=== PATIENT | female | born 1950 | race Caucasian/White ===

== ENCOUNTER → 2016-12-19 | Outpatient (CLI) | payer OTHER ==
--- NOTE | 2016-12-20 14:00 | MM ---
Reason for exam: screening (asymptomatic). Last mammogram was performed 1 year and 1 month ago. History: Patient is postmenopausal and had first child at age 36. Family history of breast cancer in maternal aunt. Physical Findings: A clinical breast exam by your physician is recommended on an annual basis and results should be correlated with mammographic findings. MG 3D Screening Mammo W/Cad Bilateral CC and MLO view(s) were taken. Prior study comparison: December 01, 2015, bilateral MG 3d screening mammo w/cad. The breast tissue is extremely dense which could obscure a lesion on mammography. No significant changes when compared with prior studies. ASSESSMENT: Benign, BI-RAD 2 RECOMMENDATION: Routine screening mammogram of both breasts in 1 year.
== END ==
LOC: RADMAMWWP 07:32
PROVIDERS: ATTEND Family Medicine
DX: Z12.31 Encounter for screening mammogram for malignant neoplasm of breast (principal)
CPT/HCPCS: 77063; G0202

== ENCOUNTER → 2017-12-29 | Outpatient (CLI) | payer MEDICARE ==
[2017-12-29 10:09] LABS: Basophils % (A) 1 %; Eosinophils # (A) 0.2 k/uL (0-0.7); Eosinophils % (A) 5 %; HCT 39.1 % (34.0-46.0); HGB 12.7 gm/dL (11.4-16.0); Lymphocytes # (A) 1.6 k/uL (1.0-4.8); Lymphocytes % (A) 37 %; MCH 29.3 pg (25.0-35.0); MCHC 32.5 g/dL (31.0-37.0); MCV 90.1 fL (80.0-100.0); Mean Platelet Volume 6.5; Monocytes # (A) 0.3 k/uL (0-1.0); Monocytes % (A) 6 %; Neutrophils # (A) 2.1 k/uL (1.3-7.7); Neutrophils % (A) 49 %; Platelet Count 323 k/uL (150-450); RBC 4.34 m/uL (3.80-5.40); RDW 13.1 % (11.5-15.5); WBC 4.3 k/uL (3.8-10.6)
[2017-12-29 10:32] LABS: Anion Gap 14 mmol/L; Blood Urea Nitrogen 17 mg/dL (7-17); Carbon Dioxide 29 mmol/L (22-30); Chloride 102 mmol/L (98-107); Potassium 3.8 mmol/L (3.5-5.1); Sodium 145 mmol/L (137-145)
== END | disposition home or self-care (01) ==
LOC: LABPAT 09:02
PROVIDERS: ATTEND Obstetrics & Gynecology
DX: Z01.812 Encounter for preprocedural laboratory examination (principal); N81.4 Uterovaginal prolapse, unspecified; Z01.818 Encounter for other preprocedural examination
CPT/HCPCS: 36415; 80051; 82565; 84520; 85025; 86850; 86900; 86901; 87086; 93005

== ENCOUNTER 2018-01-08 05:34 | Inpatient (IN) | payer MEDICARE, OTHER ==
[2017-12-25 12:38] VITALS: BMI 21.8
[~2018-01-08 05:34] MED LIST: DEXAMETHASONE SOD PHOSPHATE 10 MG/ML 1 ML VIAL IV ONE; HYDROmorphone 0.5 MG/0.5 ML SYRINGE IVP PRN; MORPHINE SULFATE 4 MG/ML SYRINGE IV PRN; ONDANSETRON 4 MG/2 ML VIAL IVP ONE; ONDANSETRON 4 MG/2 ML VIAL IVP PRN; ceFAZolin IN SWFI 2 GM/20 ML SYRINGE IVP ONE
[2018-01-08] MEDS: LACTATED RINGERS 1,000 ML IV SCH ×2 (06:26→23:58)
[2018-01-08] MEDS ORDERED: MIDAZOLAM 2 MG/2 ML VIAL ONE (08:10)
[2018-01-08] MEDS ORDERED: PHENYLEPHRINE-0.9% NACL SYG 1 MG/10 ML SYRINGE ONE (08:10)
[2018-01-08] MEDS ORDERED: PROPOFOL 10 MG/ML 20 ML VIAL IV ONE (08:10)
[2018-01-08] MEDS ORDERED: fentaNYL (PF) 50 MCG/ML 2 ML AMP ONE (08:10)
[2018-01-08] MEDS ORDERED: VASOPRESSIN 20 UNIT/ML 1 ML VIAL SQ ONE (08:35)
[2018-01-08] MEDS ORDERED: BACITRACIN 500 UNIT/GM OINT 28.4 GM TUBE TOPICAL ONE (08:53)
[2018-01-08] MEDS ORDERED: diphenhydrAMINE 50 MG/ML 1 ML VIAL IVP PRN (09:12)
[2018-01-08] MEDS ORDERED: IBUPROFEN 600 MG TAB PO PRN (09:12)
[2018-01-08] MEDS ORDERED: ZOLPIDEM 5 MG TAB PO PRN (09:12)
[2018-01-08] MEDS ORDERED: Acetaminophen-Codeine 300-30mg TAB PO PRN (09:12)
--- NOTE | 2018-01-08 09:12 | P.OP ---
Date of Procedure: 01/08/18 Preoperative Diagnosis: Symptomatic uterine prolapse, cystocele Postoperative Diagnosis: Same, no ovarian anomalies Procedure(s) Performed: Vaginal hysterectomy, anterior colporrhaphy Anesthesia: spinal Surgeon: Laura Arndt Computer Programmer Chief #1: jA Saleem Estimated Blood Loss (ml): 25 IV fluids (ml): 700 Urine output (ml): 200 Pathology: other (Cervix and uterus) Condition: stable Disposition: PACU Operative Findings: Normal-appearing left ovary Description of Procedure: Patient is brought to the operating suite where a spinal with Duramorph is given. She is then put in the dorsal lithotomy position, the cervix, vagina, perineal body and lower abdomen are all prepped and draped in usual sterile fashion. Antibiotics are given. The appropriate timeout is performed to assure proper patient and procedural identification. Weighted speculum was placed into the vagina, bladder is drained for approximately 200 mL of clear yellow urine. The anterior lip of the cervix is grasped with a double-tooth tenaculum. The cervix is injected circumferentially with dilute Pitressin solution. A kotzebue blade scalpel is used to incise the mucosa circumferentially, with a V like positioning at 6:00. A sponge rolled finger is used to sweep the mucosa from the underlying plane. Peritoneum is entered at 6:00 and suture tied with 2-0 Vicryl. The large billed speculum is then placed. At all times the mucosa is swept well from the underlying plane, to avoid any bladder and/or ureteral injury. Rose clamps are used, and the right uterosacral ligament is identified, clamped, cut, and held with a 0 Vicryl suture. The same is carried out on the contralateral side. Uterine vasculature is identified, clamped cut and suture ligated. 2 additional pedicles are taken superior to the vessels. Peritoneum is entered at 6:00. Rose clamps are used across the final pedicles , the cervix and uterus are removed and sent to pathology. The pedicles are tied with 0 Vicryl suture, flashed, and retied for excellent hemostasis. The right ovary has been surgically removed, the left ovary appears atrophic and normal, and therefore left in situ per the patient's wishes. 2-0 Vicryl suture at 6:00 is now brought around to close the peritoneum in a pursestring fashion. The previously held uterosacral cardinal ligaments are brought across to incorporate the opposite ligament as well as vaginal mucosa. 2 additional wexmwr-qd-jrwaq sutures of 0 Vicryl are used and the vaginal cough is closed. Allis clamps are used on the anterior most portion, and the cystocele repair is started. The mucosa is injected in the midline with the same dilute Pitressin solution. Metzenbaum scissors are used to undermine the mucosa and it is opened in the midline to approximately 1.5 cm inferior to the urethra. Whitley catheter is now placed in the bladder is drained. The edges of the mucosa are held with Allis clamps and a fanlike fashion. The mucosa is dissected from the underlying fascial plane. 2-0 Vicryl sutures used to bring the fascial edges together in the midline in an interrupted fashion. The cystocele was completely reduced. Metzenbaum scissors are used to trim the redundant mucosa. 2-0 Vicryl is used in a running locking stitch to close the anterior repair. Vagina is completely visualized and noted to be clean and dry. It is packed with a 1 inch iodophor gauze. Whitley catheter is noted to be draining clear urine. All sponge needle and enhancement counts are correct at the end of the procedure. Patient is brought back to the recovery room in excellent condition with stable vital signs including blood pressure 112/58, pulse 66, 99% O2 saturation.
[2018-01-08] MEDS ORDERED: KETOROLAC 30 MG/ML 1 ML VIAL IVP PRN (12:25)
[2018-01-08] MEDS: METOCLOPRAMIDE 5 MG/ML 2 ML VIAL IVP PRN ×2 (12:42→19:31)
[2018-01-08] MEDS ORDERED: NALOXONE 0.4 MG/ML 1 ML VIAL IV PRN (13:52)
[2018-01-08] MEDS ORDERED: MORPHINE SULFATE 2 MG/ML SYRINGE IVP PRN (13:52)
[2018-01-08] MEDS ORDERED: NALBUPHINE 10 MG/ML AMPUL IV PRN (13:52)
--- NOTE | 2018-01-09 07:07 | P.PN ---
Progress Note - Text Progress Note Date: 01/09/18 Postoperative day 1 status post vaginal hysterectomy, under spinal anesthesia, and intrathecal morphine given for postoperative analgesia, patient doing well, there is no anesthesia related complications, Patient had no headache, vital signs stable , Assessment and plan= postop day 1 , doing well there is no anesthesia related complication.
--- NOTE | 2018-01-09 08:12 | P.DS ---
Providers Date of admission: 01/08/18 Expected date of discharge: 01/09/18 Attending physician: Laura Arndt Primary care physician: [facility] Course: This is a 67-year-old female who presented with an increasingly symptomatic bulge of the perineal body. Preoperative workup included consultation with Dr. Smith, sling procedure deemed unnecessary. Patient consented for vaginal hysterectomy and anterior colporrhaphy. Please see my dictated history and physical for details. Patient underwent vaginal hysterectomy and anterior colporrhaphy under my care yesterday. She did well intraoperatively. The right ovary had been surgically removed, left ovary appeared normal and was therefore left in situ per her wishes. The vagina was packed with iodoform gauze and Whitley catheter placed. Please see my dictated operative note for details. Today the patient is doing very well. She has voided, and has a post void residual of 0. Vaginal packing has been removed, there was no vaginal bleeding. She had nausea and emesis last night, however that has resolved this morning and she is tolerating regular diet. Extremities are negative for edema. Abdomen is soft and nontender, active bowel sounds, no CVA tenderness. Patient is being discharged home later today. She is in very good condition for discharge home. I have reminded her no intercourse, tampons or douching. She will use [id number] ibuprofen products, 200 mg pills, 3 every 6 hours as needed. I've asked her to call me with any fevers shakes or chills, any vaginal bleeding, any pain not alleviated by ibuprofen, or indeed with any concerns. She will resume all of her home medications. Pathology report pending at time of this dictation. Patient Condition at Discharge: Good Plan - Discharge Summary Discharge Rx Participant: No New Discharge Prescriptions: No Action Multivitamins, Thera [Multivitamin (formulary)] 1 each PO DAILY Discharge Medication List Multivitamins, Thera [Multivitamin (formulary)] 1 each PO DAILY 12/25/17 [ History] Follow up Appointment(s)/Referral(s): Laura Arndt MD [STAFF PHYSICIAN] - 2 Weeks Discharge Disposition: HOME SELF-CARE
[2018-01-09] MEDS: LACTATED RINGERS 1,000 ML IV SCH (09:11)
[2018-01-09 13:09] VITALS: BP 101/52; PULSE 62; TEMP 98.9
[2018-01-09 14:22] VITALS: RESP 18
== END 2018-01-09 14:46 | disposition home or self-care (01) | DRG 743 ==
LOC: OR 05:34 → 6PED 09:07 → OR 09:07 → 6PED 09:12 → OR 01-09 08:34 → 6PED 01-09 08:34 → UNDOADMIN 01-09 08:35 → 6PED 01-09 08:35
PROVIDERS: ADMIT Obstetrics & Gynecology; ATTEND Obstetrics & Gynecology
PROC: 0JQC3ZZ Repair Pelvic Region Subcutaneous Tissue and Fascia, Percutaneous Approach (ICD-10-PCS; principal; 2018-01-08 07:45)
PROC: 0UT97ZZ Resection of Uterus, Via Natural or Artificial Opening (ICD-10-PCS; principal; 2018-01-08 07:45)
DX: N81.4 Uterovaginal prolapse, unspecified (principal); Z88.0 Allergy status to penicillin; Z78.0 Asymptomatic menopausal state; Z90.721 Acquired absence of ovaries, unilateral; Z98.51 Tubal ligation status
CPT/HCPCS: 86850; 86900; 86901; 88307

== ENCOUNTER → 2018-02-15 | Outpatient (CLI) | payer MEDICARE ==
--- NOTE | 2018-02-19 08:07 | MM ---
Reason for exam: screening (asymptomatic). Last mammogram was performed 1 year and 2 months ago. History: Patient is postmenopausal and had first child at age 36. Family history of breast cancer in maternal aunt. Physical Findings: A clinical breast exam by your physician is recommended on an annual basis and results should be correlated with mammographic findings. MG 3D Screening Mammo W/Cad Bilateral CC and MLO view(s) were taken. Prior study comparison: December 19, 2016, bilateral MG 3d screening mammo w/cad. December 01, 2015, bilateral MG 3d screening mammo w/cad. October 05, 2014, bilateral MG diagnostic mammo w CAD [facility]. The breast tissue is heterogeneously dense. This may lower the sensitivity of mammography. No significant changes when compared with prior studies. ASSESSMENT: Negative, BI-RAD 1 RECOMMENDATION: Routine screening mammogram of both breasts in 1 year.
== END | disposition home or self-care (01) ==
LOC: RADMAMWWP 10:59
PROVIDERS: ATTEND Family Medicine
DX: Z12.31 Encounter for screening mammogram for malignant neoplasm of breast (principal)
CPT/HCPCS: 77063; 77067

== ENCOUNTER → 2018-05-22 | Outpatient (CLI) | payer MEDICARE ==
--- NOTE | 2018-05-22 13:44 | BD ---
EXAMINATION TYPE: Axial Bone Density DATE OF EXAM: 05/22/2018 COMPARISON: NONE CLINICAL HISTORY: Height: 68 IN Weight: 148 LBS FRAX RISK QUESTIONS: Secondary Osteoporosis: RISK FACTORS HISTORY OF: Active: YES Postmenopausal woman: AGE 60 Take estrogen and/or progesterone medications: NOT NOW How long: TOOK CONTROL AGE 21-26 MEDICATIONS: Additional Medications: MULTI VITAMIN EXAM MEASUREMENTS: Bone mineral densitometry was performed using the [email or web address] System. Bone mineral density as measured about the Lumbar spine is: ----- L1-L4(G/cm2): 1.209 T Score Values are as follows: ----- L2: -0.5 ----- L3: 1.2 ----- L4: 0.9 ----- L1-L4: 0.2 Bone mineral density BASELINE Bone mineral density about the R hip (g/cm2): 0.967 Bone mineral density about the L hip (g/cm2): 0.992 T Score values are as follows: -----R Neck: -0.5 -----L Neck: -0.3 -----R Total: -0.4 -----L Total: 0.3 Bone mineral density BASELINE IMPRESSION: Normal (Values between +1 and -1 indicate normal bone mass). Consider repeating this study in 5 year s or sooner if there is some new clinical indication. NOTE: T-SCORE=SD OF THE YOUNG ADULT MEAN.
== END | disposition home or self-care (01) ==
LOC: RADBDWWP 10:01
PROVIDERS: ATTEND Family Medicine
DX: Z13.820 Encounter for screening for osteoporosis (principal)
CPT/HCPCS: 77080

== ENCOUNTER 2019-06-10 07:51 | Day surgery (SDC) | payer MEDICARE ==
[2019-06-06 11:35] VITALS: BMI 21.1
[~2019-06-10 07:51] MED LIST changes: -DEXAMETHASONE SOD PHOSPHATE 10 MG/ML 1 ML VIAL IV ONE; -HYDROmorphone 0.5 MG/0.5 ML SYRINGE IVP PRN; +LACTATED RINGERS 1,000 ML IV SCH; +LIDOCAINE 1% 20 ML VIAL (10MG/ML) FOR IV START INTRADERMA PRN; -MORPHINE SULFATE 4 MG/ML SYRINGE IV PRN; -ONDANSETRON 4 MG/2 ML VIAL IVP ONE; -ONDANSETRON 4 MG/2 ML VIAL IVP PRN; -ceFAZolin IN SWFI 2 GM/20 ML SYRINGE IVP ONE
[2019-06-10 08:29] VITALS: TEMP 98
[2019-06-10] MEDS ORDERED: PROPOFOL 10 MG/ML 20 ML VIAL IV ONE (09:01)
[2019-06-10 09:36] VITALS: BP 106/63; PULSE 58; RESP 16
--- NOTE | 2019-06-10 09:44 | P.PCN ---
Date of Procedure: 06/10/19 Description of Procedure: BRIEF HISTORY: Patient is a 68-year-old pleasant female scheduled for an elective colonoscopy as a part of personal history of colon polyps. Last colonoscopy in 2013 at which time patient will require was removed. No change in bowel habits, blood per rectum or abdominal pain. PROCEDURE PERFORMED: Colonoscopy with polypectomy. PREOPERATIVE DIAGNOSIS: personal history of colon polyps, last colonoscopy in 2013. ESTIMATED BLOOD LOSS: Minimal. IV sedation per Anesthesia. PROCEDURE: After informed consent was obtained, the patient, was brought into the endoscopy unit. IV sedation was administered by Anesthesia under continuous monitoring. Digital rectal examination was normal. Initially the Olympus CF-190 flexible video colonoscope was then inserted in the rectum, gradually advanced into the cecum without any difficulty. Careful examination was performed as the scope was gradually being withdrawn. Ileocecal valve and the appendiceal orifice were visualized and appeared normal. Prep was excellent. Mucosa of the cecum, ascending colon, transverse colon, descending colon, sigmoid colon, and rectum appeared normal. diminutive 2 mm transverse colon polyp removed with cold forcep polypectomy. Diminutive 2 mm sigmoid polyp removed with cold forcep p olypectomy. Mild sigmoid diverticulosis.Retroflexion was performed in the rectum and no lesions were seen. The patient tolerated the procedure well. IMPRESSION: 2 diminutive polyps removed from the transverse colon and sigmoid with cold forcep polypectomy. Mild sigmoid diverticulosis. RECOMMENDATIONS: Findings of this examination were discussed with the patient and her . Okay to resume diet. Okay to resume medications. Anticipate repeat colonoscopy in 5 years for personal history of colon polyps.
== END 2019-06-10 10:27 | disposition home or self-care (01) ==
LOC: ORWHC2ENDO 07:51
PROVIDERS: ATTEND Internal Medicine
DX: Z12.11 Encounter for screening for malignant neoplasm of colon (principal); D12.3 Benign neoplasm of transverse colon; K63.5 Polyp of colon; K57.30 Diverticulosis of large intestine without perforation or abscess without bleeding; Z86.010 Personal history of colon polyps; Z90.710 Acquired absence of both cervix and uterus; Z98.51 Tubal ligation status; Z90.721 Acquired absence of ovaries, unilateral; Z80.0 Family history of malignant neoplasm of digestive organs; Z88.0 Allergy status to penicillin
CPT/HCPCS: 88305; 45380; J2704

== ENCOUNTER → 2019-06-11 | Outpatient (CLI) | payer MEDICARE ==
--- NOTE | 2019-06-13 09:33 | MM ---
Reason for exam: screening (asymptomatic). Last mammogram was performed 1 year and 4 months ago. History: Patient is postmenopausal and had first child at age 36. Family history of breast cancer in maternal aunt. Physical Findings: A clinical breast exam by your physician is recommended on an annual basis and results should be correlated with mammographic findings. MG 3D Screening Mammo W/Cad Bilateral CC and MLO view(s) were taken. Prior study comparison: February 15, 2018, bilateral MG 3d screening mammo w/cad. December 19, 2016, bilateral MG 3d screening mammo w/cad. The breast tissue is heterogeneously dense. This may lower the sensitivity of mammography. There are benign appearing regional round calcifications bilaterally. There is no discrete abnormality. ASSESSMENT: Benign, BI-RAD 2 RECOMMENDATION: Routine screening mammogram of both breasts in 1 year.
== END | disposition home or self-care (01) ==
LOC: RADMAMWWP 14:55
PROVIDERS: ATTEND Family Medicine
DX: Z12.31 Encounter for screening mammogram for malignant neoplasm of breast (principal)
CPT/HCPCS: 77063; 77067

== ENCOUNTER → 2020-08-17 | Outpatient (CLI) | payer MEDICARE ==
--- NOTE | 2020-08-19 13:59 | MM ---
Reason for exam: screening (asymptomatic). Last mammogram was performed 1 year and 2 months ago. History: Patient is postmenopausal and had first child at age 36. Family history of breast cancer in maternal aunt. Physical Findings: A clinical breast exam by your physician is recommended on an annual basis and results should be correlated with mammographic findings. MG 3D Screening Mammo W/Cad Bilateral CC and MLO view(s) were taken. Prior study comparison: June 11, 2019, bilateral MG 3d screening mammo w/cad. February 15, 2018, bilateral MG 3d screening mammo w/cad. The breast tissue is heterogeneously dense. This may lower the sensitivity of mammography. Benign dermal calcification at the left axilla. No significant changes when compared with prior studies. ASSESSMENT: Negative, BI-RAD 1 RECOMMENDATION: Routine screening mammogram of both breasts in 1 year.
== END | disposition home or self-care (01) ==
LOC: RADMAMWWP 16:04
PROVIDERS: ATTEND Family Medicine
DX: Z12.31 Encounter for screening mammogram for malignant neoplasm of breast (principal)
CPT/HCPCS: 77063; 77067

== ENCOUNTER → 2021-09-21 | Outpatient (CLI) | payer MEDICARE ==
--- NOTE | 2021-09-23 11:38 | MM ---
Reason for exam: screening (asymptomatic). Last mammogram was performed 1 year and 1 month ago. History: Patient is postmenopausal and had first child at age 36. Family history of breast cancer in maternal aunt. Physical Findings: A clinical breast exam by your physician is recommended on an annual basis and results should be correlated with mammographic findings. MG 3D Screening Mammo W/Cad Bilateral CC and MLO view(s) were taken. Prior study comparison: August 17, 2020, bilateral MG 3d screening mammo w/cad. June 11, 2019, bilateral MG 3d screening mammo w/cad. The breast tissue is heterogeneously dense. This may lower the sensitivity of mammography. No significant changes when compared with prior studies. ASSESSMENT: Negative, BI-RAD 1 RECOMMENDATION: Routine screening mammogram of both breasts in 1 year.
== END | disposition home or self-care (01) ==
LOC: RADMAMWWP 13:36
PROVIDERS: ATTEND Family Medicine
DX: Z12.31 Encounter for screening mammogram for malignant neoplasm of breast (principal); Z78.0 Asymptomatic menopausal state; Z80.3 Family history of malignant neoplasm of breast
CPT/HCPCS: 77063; 77067

== ENCOUNTER → 2023-03-30 | Outpatient (CLI) | payer MEDICARE ==
--- NOTE | 2023-03-30 13:17 | MM ---
Reason for Exam: Follow-up at short interval from prior study. Last screening mammogram was performed 6 month(s) ago. Patient History: Menarche at age 14. First Full-Term at age 36. Late child-bearing (after 30). Right ovary removed at age 32. Hysterectomy at age 67. Postmenopausal. Patient has history of breast feeding. Patient used Hormonal Contraceptives for 3 years. Maternal aunt had breast cancer. Risk Values: Daria 5 year model risk: 2.4%. NCI Lifetime model risk: 6.9%. Prior Study Comparison: 09/21/2021 Bilateral Screening Mammogram, [facility]. 09/25/2022 Bilateral MG 3D screening mammo w/cad, [facility]. 09/28/2022 Left MG 3D work up w/cad , [facility]. Tissue Density: Left: The breast tissue is heterogeneously dense. This may lower the sensitivity of mammography. Findings: Analyzed By CAD. Asymmetry in the left breast/fibroglandular tissue appears stable. No new suspicious masses, calcifications or distortions. Overall Assessment: Benign, BI-RAD 2 Management: Screening Mammogram of both breasts in 1 year. Results were given to the patient verbally at the time of exam. Patient should continue monthly self-breast exams. A clinical breast exam by your physician is recommended on an annual basis. This exam should not preclude additional follow-up of suspicious palpable abnormalities. Note on Daria scores and lifetime risk: 1. A Daria score greater than 3% is considered moderate risk. If this is the case, consider specialist referral to assess eligibility for a risk reducing agent. 2. If overall lifetime risk for the development of breast cancer is 20% or higher, the patient may qualify for future screening with alternating mammogram and breast MRI. Electronically signed and approved by: Anmol Falcon DO
== END | disposition home or self-care (01) ==
LOC: RADMAMWWP 12:52
PROVIDERS: ATTEND Family Medicine
DX: R92.8 Other abnormal and inconclusive findings on diagnostic imaging of breast (principal); Z78.0 Asymptomatic menopausal state; Z80.3 Family history of malignant neoplasm of breast
CPT/HCPCS: 77065; G0279; 77061

== ENCOUNTER → 2023-10-15 | Outpatient (CLI) | payer MEDICARE ==
--- NOTE | 2023-10-16 14:57 | MM ---
Reason for Exam: Screening (asymptomatic). Last mammogram was performed 1 year(s) and 1 month(s) ago. Patient History: Menarche at age 14. First Full-Term at age 36. Late child-bearing (after 30). Right ovary removed at age 32. Hysterectomy at age 67. Postmenopausal. Patient has history of breast feeding. Patient used Hormonal Contraceptives for 3 years. Maternal aunt had breast cancer. Risk Values: Daria 5 year model risk: 2.4%. NCI Lifetime model risk: 6.6%. Prior Study Comparison: 09/25/2022 Bilateral MG 3D screening mammo w/cad, [facility]. 09/28/2022 Left MG 3D work up w/cad LT, [facility]. 03/30/2023 Left MG 3D diag mammo w/cad LT, [facility]. Tissue Density: The breasts are heterogeneously dense, which may obscure small masses. Findings: Analyzed By CAD. There is no suspicious group of microcalcifications or new suspicious mass. Benign-appearing calcifications bilaterally. Overall Assessment: Benign, BI-RAD 2 Management: Screening Mammogram of both breasts in [address] [facility] will attempt to contact patient to return for supplemental views and ultrasound if indicated. Patient should continue monthly self-breast exams. A clinical breast exam by your physician is recommended on an annual basis. This exam should not preclude additional follow-up of suspicious palpable abnormalities. Note on Daria scores and lifetime risk: 1. A Daria score greater than 3% is considered moderate risk. If this is the case, consider specialist referral to assess eligibility for a risk reducing agent. 2. If overall lifetime risk for the development of breast cancer is 20% or higher, the patient may qualify for future screening with alternating mammogram and breast MRI. Electronically signed and approved by: Anmol Falcon DO
== END | disposition home or self-care (01) ==
LOC: RADMAMWWP 13:30
PROVIDERS: ATTEND Family Medicine
DX: Z12.31 Encounter for screening mammogram for malignant neoplasm of breast (principal); Z78.0 Asymptomatic menopausal state; Z80.3 Family history of malignant neoplasm of breast
CPT/HCPCS: 77063; 77067

== ENCOUNTER → 2024-04-29 | Day surgery (SDC) | payer MEDICARE ==
[~2024-04-29] MED LIST changes: -LACTATED RINGERS 1,000 ML IV SCH; -LIDOCAINE 1% 20 ML VIAL (10MG/ML) FOR IV START INTRADERMA PRN; +LIDOCAINE 1% INJ 10MG/ML (20 ML MDV) ONE; +PROPOFOL 10 MG/ML 20 ML VIAL IV ONE
[2024-04-29 09:28] VITALS: TEMP 97.4
[2024-04-29] MEDS: LACTATED RINGERS 1,000 ML IV SCH (09:38)
[2024-04-29] MEDS: IV FLUID CONTINUATION 1,000 ML IV ONE (09:39)
--- NOTE | 2024-04-29 09:56 | P.GSHP ---
History of Present Illness H&P Date: 04/29/24 Chief Complaint: Colon cancer screening, history of polyps 73-year-old female here for colonoscopy. Last colonoscopy 5 years ago. Patient with history of colon polyps. No definite family history of colon cancer. Past Medical History Additional Past Medical History / Comment(s): osteopenia, hx colon polyps History of Any Multi-Drug Resistant Organisms: None Reported Past Surgical History: Hysterectomy, Tubal Ligation Additional Past Surgical History / Comment(s): RT SALPINGO OOPHORECTOMY AND CYSTECTOMY. COLONOSCOPY Past Anesthesia/Blood Transfusion Reactions: Postoperative Nausea & Vomiting (PONV) Additional Past Anesthesia/Blood Transfusion Reaction / Comment(s): pt's children experience PONV Smoking Status: Never smoker - Past Family History Mother Family Medical History: No Reported History Father Family Medical History: Cancer Additional Family Medical History / Comment(s): prostate Medications and Allergies Home Medications Medication Instructions Recorded Confirmed Type Multivitamins, Thera [Multivitamin 1 each PO DAILY 12/25/17 04/24/24 History (formulary)] Cholecalciferol [Vitamin D3 (25 25 mcg PO DAILY 04/24/24 04/24/24 History Mcg = 1000 Iu)] Allergies Allergy/AdvReac Type Severity Reaction Status Date / Time Penicillins Allergy Rash/Hives Verified 04/29/24 09:21 Surgical - Exam Vital Signs Temp Pulse Resp BP Pulse Ox 97.4 F L 70 18 141/63 99 04/29/24 09:25 04/29/24 09:25 04/29/24 09:25 04/29/24 09:25 04/29/24 09:25 Physical exam: General: Well-developed, well-nourished HEENT: Normocephalic, sclerae nonicteric Abdomen: Nontender, nondistended Extremities: No edema Neuro: Alert and oriented Assessment and Plan (1) Colon cancer screening Narrative/Plan: Will proceed with colonoscopy at this time. Current Visit: Yes Status: Acute Code(s): Z12.11 - ENCOUNTER FOR SCREENING FOR MALIGNANT NEOPLASM OF COLON SNOMED Code(s): 898939142
--- NOTE | 2024-04-29 10:21 | P.PCN ---
Date of Procedure: 04/29/24 Procedure(s) Performed: PREOPERATIVE DIAGNOSIS: Colon cancer screening with history of polyps POSTOPERATIVE DIAGNOSIS: Diverticulosis, tortuous colon PROCEDURE: Colonoscopy ANESTHESIA: MAC SURGEON: Werner Reyes M.D. SPECIMENS: None ENDOSCOPIC PROCEDURE: The patient was placed on the endoscopy table in the left decubitus position. The Olympus colonoscope was inserted into the anus and passed under direct visualization to the base of the cecum. The appendiceal orifice was visualized. From that point the scope was slowly withdrawn inspecting all surfaces carefully. There were no neoplastic inflammatory or polypoid lesions throughout the cecum, ascending, transverse, descending, sigmoid and rectum. There was scattered diverticulosis noted. The patient had a very tortuous colon. Digital rectal examination was normal. The patient was taken to the recovery room in stable condition per anesthesia guidelines. RECOMMENDATIONS: Resume diet. Repeat colonoscopy 7 years.
[2024-04-29 10:29] VITALS: BP 94/56; PULSE 69; RESP 16
== END ==
LOC: ORWHC2ENDO 08:51
PROVIDERS: ATTEND Surgery
DX: D12.6 Benign neoplasm of colon, unspecified
CPT/HCPCS: 45378

== ENCOUNTER → 2024-11-24 | Outpatient (CLI) | payer MEDICARE ==
--- NOTE | 2024-11-24 13:26 | MM ---
Reason for Exam: Screening (asymptomatic). Last mammogram was performed 1 year(s) and 1 month(s) ago. Patient History: Menarche at age 14. First Full-Term at age 36. Late child-bearing (after 30). Right ovary removed at age 32. Hysterectomy at age 67. Postmenopausal. Patient has history of breast feeding. Patient used Hormonal Contraceptives for 3 years. Maternal aunt had breast cancer. Risk Values: Daria 5 year model risk: 2.4%. NCI Lifetime model risk: 6.3%. Prior Study Comparison: 09/28/2022 Left MG 3D work up w/cad LT, [facility]. 03/30/2023 Left MG 3D diag mammo w/cad LT, [facility]. 10/15/2023 Bilateral MG 3D screening mammo w/cad, [facility]. Tissue Density: The breasts are heterogeneously dense, which may obscure small masses. Findings: Analyzed By CAD. There is no suspicious group of microcalcifications or new suspicious mass in either breast. Overall Assessment: Benign, BI-RAD 2 Management: Screening Mammogram of both breasts in 1 year. . Patient should continue monthly self-breast exams. A clinical breast exam by your physician is recommended on an annual basis. This exam should not preclude additional follow-up of suspicious palpable abnormalities. Note on Daria scores and lifetime risk: 1. A Daria score greater than 3% is considered moderate risk. If this is the case, consider specialist referral to assess eligibility for a risk reducing agent. 2. If overall lifetime risk for the development of breast cancer is 20% or higher, the patient may qualify for future screening with alternating mammogram and breast MRI. [facility], , 11/24/2024 1:23 PM. Electronically signed and approved by: Patrick eL M.D. Radiolog[facility]
== END | disposition home or self-care (01) ==
LOC: RADMAMWWP 13:00
PROVIDERS: ATTEND Family Medicine
DX: Z12.31 Encounter for screening mammogram for malignant neoplasm of breast (principal); R92.333 Mammographic heterogeneous density, bilateral breasts; Z78.0 Asymptomatic menopausal state; Z80.3 Family history of malignant neoplasm of breast; Z92.0 Personal history of contraception
CPT/HCPCS: 77063; 77067